=== PATIENT | female | born 1960 | race Caucasian/White ===

== ENCOUNTER → 2017-06-13 | Outpatient (CLI) | payer BC ==
[~2017-06-13] MED LIST: Levothroid,Synthroid PO; Vicodin,Norco 5/325 PO
== END | disposition home or self-care (01) ==
LOC: NUC 05-16 11:00
DX: N13.30 Unspecified hydronephrosis (principal); E24.9 Cushing's syndrome, unspecified; Z90.5 Acquired absence of kidney
CPT/HCPCS: 78709; A9562; J1940